=== PATIENT | female | born 2000 | race Caucasian/White ===

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

== ENCOUNTER 2021-10-04 21:59 | Emergency (ER) | payer MEDICAID ==
[2021-10-04 22:23] LABS: BILIRUBIN,URINE NEGATIVE (NEGATIVE); GLUCOSE, URINE (UA) NEGATIVE (NEGATIVE); KETONES,URINE (UA) 15 mg/dL (NEGATIVE); LEUKOCYTE ESTERASE, URINE MODERATE (NEGATIVE); NITRITE,URINE NEGATIVE (NEGATIVE); OCCULT BLOOD,URINE LARGE (NEGATIVE); PH,URINE 6.5 PH (5.0-7.5); PROTEIN,URINE NEGATIVE (NEGATIVE); UROBILINOGEN,URINE 0.2 (NORMAL) E.U./dL (NORMAL)
[2021-10-04 22:26] LABS: CLARITY,URINE HAZY (CLEAR); HCG UR QUAL NEGATIVE
[2021-10-04 22:33] LABS: BACTERIA,URINE Many /HPF (None Seen); RBC,URINE TNTC /HPF (0-5); SQUAMOUS EPITHELIAL CELL,UR FEW Squamous (<= Few); WBC,URINE >25 /HPF (0-5)
[2021-10-04] MEDS ORDERED: HYDROcod/ACET 5/325 Prepack 4 PO STA (23:03)
[2021-10-04] MEDS ORDERED: cefTRIAXone 1 GM VIAL IM STA (23:03)
[2021-10-04] MEDS ORDERED: LIDOCAINE 1% 2 ML VIAL MC ONE (23:03)
[2021-10-04] MEDS ORDERED: KETOROLAC 60 MG/2 ML VIAL IM STA (23:03)
--- NOTE | 2021-10-04 23:05 | ED Physician Documentation ---
PD HPI FEMALE - Stated complaint Stated Complaint: DYSURIA/BACK PX - Chief complaint Chief Complaint: UTI - History obtained from History obtained from: Patient - History of Present Illness Timing - onset: How many weeks ago (2) Timing - duration: Weeks (2) Timing - details: Gradual onset, Still present Associated symptoms: Back pain, Dysuria, Urinary frequency. No: Fever Contributing factors: IUD. No: Similar symptoms before: Diagnosis (UTI) Recently seen: Not recently seen - Additional information Additional information: Previously well 21-year-old female has developed urinary urgency frequency and dysuria about 2 weeks ago. She tried some cranberry juice to mitigate the symptoms this really did not work. She has now developed back pain and the back pain is persistent and severe. She has some nausea she has not had any vomiting. She has back pain that is worse when she is moving around and present even at rest. She has not had fever cough or congestion. Review of Systems Constitutional: denies: Fever Eyes: denies: Decreased vision Ears: denies: Ear pain Nose: denies: Congestion Throat: denies: Sore throat Cardiac: denies: Chest pain / pressure Respiratory: denies: Dyspnea, Cough GI: reports: Nausea. denies: Abdominal Pain, Vomiting, Diarrhea : reports: Dysuria, Frequency Skin: denies: Rash Musculoskeletal: reports: Back pain. denies: Neck pain Neurologic: denies: Generalized weakness, Focal weakness, Numbness PD PAST MEDICAL HISTORY - Past Medical History Past Medical History: Yes Respiratory: Sleep apnea Endocrine/Autoimmune: Type 2 diabetes, HyPERthyroidism : Chronic bladder infection, Kidney stones Psych: Depression - Past Surgical History Past Surgical History: No - Present Medications Home Medications: Ambulatory Orders Medication Instructions Recorded Confirmed Topiramate 25 mg PO DAILY PM 12/02/16 03/15/17 FLUoxetine [PROzac] 40 mg PO DAILY 02/15/17 03/15/17 QUEtiapine [SEROquel] 400 mg PO QPM 01/28/18 01/28/18 buPROPion [Wellbutrin Sr] 01/28/18 Amox/Clav 875/125 [Augmentin] 1 each PO Q12H #14 tablet 10/04/21 HYDROcod/ACETAM 5/325 [[place] 5/325] 1 - 2 tablet PO Q6H PRN #14 tablet 10/04/21 - Allergies Allergies/Adverse Reactions: Allergies Allergy/AdvReac Type Severity Reaction Status Date / Time tetanus and diphtheria AdvReac Severe fever, Verified 10/04/21 22:10 toxoids swelling [Tetanus&Diphtheria Toxoid] - Social History Does the pt smoke?: No Smoking Status: Never smoker Does the pt drink ETOH?: No Does the pt have substance abuse?: No - Immunizations Immunizations are current?: Yes - POLST Patient has POLST: No PD ED PE NORMAL - Vitals Vital signs reviewed: Yes (Normal) - General General: Alert and oriented X 3, No acute distress, Well developed/nourished, Other (21-year-old female laying in the position with facial expression of pain.) - HEENT HEENT: Atraumatic, PERRL, EOMI - Respiratory Respiratory: No respiratory distress - Back Back: No spinal TTP, Other (Bilateral CVA tenderness worse on the right than the left.) - Derm Derm: Normal color, Warm and dry, No rash - Extremities Extremities: No deformity, No edema - Neuro Neuro: Alert and oriented X 3, infectious disease physician 2-12 intact, No motor deficit, No sensory deficit, Normal speech Eye Opening: Spontaneous Motor: Obeys Commands Verbal: Oriented GCS Score: 15 - Psych Psych: Normal mood, Normal affect Results - Vitals Vitals: Vital Signs - 24 hr 10/04/21 22:05 Temperature 36.7 C Heart Rate 99 Respiratory 18 Rate Blood Pressure 128/66 O2 Saturation 99 Oxygen O2 Source Room air - Labs Labs: Laboratory Tests 10/04/21 22:15 Urine Color YELLOW Urine Clarity HAZY Urine pH 6.5 Ur Specific [place] 1.015 Urine Protein NEGATIVE Urine Glucose (UA) NEGATIVE Urine Ketones 15 H Urine Occult Blood LARGE H Urine Nitrite NEGATIVE Urine Bilirubin NEGATIVE Urine Urobilinogen 0.2 (NORMAL) Ur Leukocyte Esterase MODERATE H Urine RBC TNTC H Urine WBC >25 H Ur Squamous Epith Cells FEW Squamous Urine Bacteria Many H Ur Microscopic Review INDICATED Urine Culture Comments INDICATED Urine HCG, Qual NEGATIVE PD MEDICAL DECISION MAKING - ED course Complexity details: reviewed results, re-evaluated patient, considered differential, d/w patient ED course: 21-year-old female with urinary tract infection and flank pain and nausea has pyelonephritis and she is ministered Rocephin IM as well as Toradol. We will send her home dose of pain medication. On review of the patient's prior urines she has grown an E. coli twice that has been resistant to sulfa and to ampicillin. It is sensitive to ceftriaxone and Augmentin. We will place this patient on Augmentin today. Departure - Departure Disposition: 01 Home, Self Care Clinical Impression: Pyelonephritis Instructions: ED Kidney Infec Female Follow-Up: Carine Reno MD [Physician No Access] - Prescriptions: Amox/Clav 875/125 [Augmentin] 1 each PO Q12H #14 tablet HYDROcod/ACETAM 5/325 [[place] 5/325] 1 - 2 tablet PO Q6H PRN #14 tablet PRN Reason: Pain
[2021-10-04 23:39] VITALS: BP 124/78
== END 2021-10-04 23:38 | disposition home or self-care (01) ==
LOC: ED 21:59
DX: N12 Tubulo-interstitial nephritis, not specified as acute or chronic (principal)
CPT/HCPCS: 81001; 81003; 81025; 87077; 87086; 96372; 99283

== ENCOUNTER 2021-10-07 16:04 | Emergency (ER) | payer MEDICAID ==
--- NOTE | 2021-10-07 17:14 | ED Physician Documentation ---
PD HPI ABD PAIN - Stated complaint Stated Complaint: LT SIDE BACK PX/FEVER/NAUSEA - Chief complaint Chief Complaint: Back Pain - History obtained from History obtained from: Patient - History of Present Illness Associated symptoms: No: Fever, Nausea, Vomiting, Hematemesis, Diarrhea, Constipation, Melena, Hematochezia - Additional information Additional information: Patient is a 21-year-old female who presents to the emergency department with lower back pain, ongoing for the past several days. Had an IUD placed about a month ago. She was seen here a few days ago and diagnosed with a UTI. She states that she took the hydrocodone and amoxicillin/clavulanic acid without relief. She states that she has having some vaginal bleeding and discharge. Mostly spotting. No STD exposure that she is aware of. Review of Systems Ten Systems: 10 systems reviewed and negative Constitutional: denies: Fever, Chills Ears: denies: Ear pain Nose: denies: Rhinorrhea / runny nose, Congestion Respiratory: denies: Cough GI: denies: Vomiting, Diarrhea, Hematemesis, Bloody / black stool : reports: Vaginal bleeding (had an IUD recently placed). denies: Dysuria, Frequency, Hesitancy, Discharge Musculoskeletal: denies: Neck pain, Back pain Neurologic: denies: Headache PD PAST MEDICAL HISTORY - Past Medical History Past Medical History: Yes Respiratory: Sleep apnea Endocrine/Autoimmune: Type 2 diabetes, HyPERthyroidism : Chronic bladder infection, Kidney stones Psych: Depression - Past Surgical History Past Surgical History: No - Present Medications Home Medications: Ambulatory Orders Medication Instructions Recorded Confirmed Amox/Clav 875/125 [Augmentin] 1 each PO Q12H #14 tablet 10/04/21 10/07/21 HYDROcod/ACETAM 5/325 [[place] 5/325] 1 - 2 tablet PO Q6H PRN #14 tablet 10/04/21 10/07/21 Oxycodone HCl/Acetaminophen 1 - 2 each PO Q6H PRN #20 tablet 10/07/21 [Percocet 5-325 mg Tablet] - Allergies Allergies/Adverse Reactions: Allergies Allergy/AdvReac Type Severity Reaction Status Date / Time tetanus and diphtheria AdvReac Severe fever, Verified 10/07/21 16:21 toxoids swelling [Tetanus&Diphtheria Toxoid] - Social History Does the pt smoke?: No Smoking Status: Never smoker Does the pt drink ETOH?: No Does the pt have substance abuse?: No - Immunizations Immunizations are current?: Yes - POLST Patient has POLST: No PD ED PE NORMAL - Vitals Vital signs reviewed: Yes - General General: Alert and oriented X 3, No acute distress, Well developed/nourished - HEENT HEENT: PERRL, Moist mucous membranes - Neck Neck: Supple, no meningeal sign - Cardiac Cardiac: RRR, Strong equal pulses - Respiratory Respiratory: No respiratory distress, Clear bilaterally - Abdomen Abdomen: Soft, Non distended, Other (Patient bilateral lower quadrant. No peritoneal signs) - Female Female : Pt declined - Back Back: No CVA TTP, No spinal TTP - Derm Derm: Warm and dry - Extremities Extremities: No edema - Neuro Neuro: Alert and oriented X 3 - Psych Psych: Normal mood, Normal affect Results - Vitals Vitals: Vital Signs - 24 hr 10/07/21 10/07/21 16:16 19:14 Temperature 36.4 C L Heart Rate 88 71 Respiratory 14 18 Rate Blood Pressure 123/70 110/57 L O2 Saturation 100 98 Oxygen O2 Source Room air - Labs Labs: Laboratory Tests 10/07/21 10/07/21 10/07/21 17:25 17:35 17:35 WBC 10.5 RBC 4.46 Hgb 13.2 Hct 40.1 MCV 89.9 MCH 29.6 MCHC 32.9 RDW 12.4 Plt Count 257 MPV 10.1 Neut # (Auto) 7.1 H Lymph # (Auto) 2.4 [place] # (Auto) 0.8 Eos # (Auto) 0.1 Baso # (Auto) 0.0 Absolute Nucleated RBC 0.00 Nucleated RBC % 0.0 Sodium 138 Potassium 4.2 Chloride 103 Carbon Dioxide 26 Anion Gap 9.0 BUN 19 Creatinine 0.8 Estimated GFR (MDRD) 91 Glucose 77 Calcium 9.2 Total Bilirubin 0.5 AST 14 ALT 15 Alkaline Phosphatase 42 Total Protein 7.0 Albumin 4.0 Globulin 3.0 Albumin/Globulin Ratio 1.3 Lipase 25 Urine Color YELLOW Urine Clarity CLEAR Urine pH 5.5 Ur Specific [place] 1.020 Urine Protein NEGATIVE Urine Glucose (UA) NEGATIVE Urine Ketones NEGATIVE Urine Occult Blood SMALL H Urine Nitrite NEGATIVE Urine Bilirubin NEGATIVE Urine Urobilinogen 0.2 (NORMAL) Ur Leukocyte Esterase NEGATIVE Urine RBC 0-5 Urine WBC 0-3 Ur Squamous Epith Cells FEW Squamous Urine Bacteria Rare Ur Microscopic Review INDICATED Urine Culture Comments NOT INDICATED Urine HCG, Qual NEGATIVE - Rads (name of study) CT abdomen pelvis Radiology: Final report received, EMP read contemporaneously, See rad report (Left hemorrhagic ovarian cyst. No torsion) Pelvic ultrasound Radiology: Prelim report reviewed, EMP read contemporaneously, See rad report PD MEDICAL DECISION MAKING - ED course Complexity details: reviewed results, re-evaluated patient, considered differential, d/w patient ED course: 21-year-old female with a left hemorrhagic ovarian cyst. No significant lab abnormalities. Pain well controlled. Will place her on pain medication for home and have her follow-up with her doctor for further care. Patient counseled regarding signs and symptoms for which I believe and urgent re-evaluation would be necessary. Patient with good understanding of and agreement to plan and is comfortable going home at this time This document was made in part using voice recognition software. While efforts are made to proofread this document, sound alike and grammatical errors may occur. Departure - Departure Disposition: 01 Home, Self Care Clinical Impression: Hemorrhagic cyst of left ovary Condition: Good Instructions: ED Cyst Ovarian Follow-Up: your,doctor in 1 week [Other] Prescriptions: Oxycodone HCl/Acetaminophen [Percocet 5-325 mg Tablet] 1 - 2 each PO Q6H PRN #20 tablet PRN Reason: pain Comments: You have a hemorrhagic left ovarian cyst. This is likely the cause of your pain. The remainder of your testing is normal tonight. You can finish the antibiotics as previously prescribed. Please follow-up with your doctor for a repeat ultrasound in 4 to 6 weeks. I am prescribing a short course of narcotic pain medication for you. These are potentially dangerous and addictive medications that should be used carefully. These medications may constipate you. Take an [id number] stool softener (docusate) twice daily with plenty of water while taking these medications. If you go 24 hours without a bowel movement, take [id number] miralax, per package instructions. Do not drink or drive while taking these medications. If you received narcotic or sedating medications while in the emergency department, do not drive for 24 hours. Store this medication in a safe, secure place and out of reach of children. It is a violation of federal law to give or sell this medication to another person or to use in a manner other than prescribed. The ED will not refill narcotic prescriptions, including prescriptions lost or stolen. To dispose of unwanted medications: 1. [facility] [address] [facility] [place] has a medication drop box. They accept prescription medications (in pill form) Tuesday through Tuesday 9:00 a.m. to 5:00 p.m. 2. The [facility] [employer] accepts prescription medications (in pill form only) for disposal year round. Call for more information. 3. Contact the [facility] for the next [facility] sponsored prescription drug collection event. , [phone], or [phone]; Discharge Date/Time: 10/07/21 19:20
[2021-10-07] MEDS ORDERED: IOVERSOL 320 100 ML VIAL IVP ONE ×2 (17:37→18:21)
[2021-10-07 17:42] LABS: BASOPHILS % (AUTO) 0.2 %; EOSINOPHILS # (AUTO) 0.1 10^3/uL (0.0-0.7); EOSINOPHILS % (AUTO) 1.1 %; HCT - HEMATOCRIT 40.1 % (37.0-47.0); HGB - HEMOGLOBIN 13.2 g/dL (12.0-16.0); LYMPHOCYTES # (AUTO) 2.4 10^3/uL (1.5-3.5); MEAN CORPUSCULAR HEMOGLOBIN 29.6 pg (27.0-31.0); MEAN CORPUSCULAR HGB CONC 32.9 g/dL (32.0-36.0); MEAN CORPUSCULAR VOLUME 89.9 fL (81.0-99.0); MEAN PLATELET VOLUME 10.1 fL (7.9-10.8); MONOCYTES # (AUTO) 0.8 10^3/uL (0.0-1.0); MONOCYTES % (AUTO) 7.8 %; NEUTROPHILS # (AUTO) 7.1 10^3/uL (1.5-6.6); NEUTROPHILS % (AUTO) 67.6 %; PLT - PLATELET COUNT 257 10^3/uL (130-450); RED BLOOD COUNT 4.46 10^6/uL (4.20-5.40); RED CELL DISTRIBUTION WIDTH 12.4 % (12.0-15.0); WHITE BLOOD COUNT 10.5 x10^3/uL (4.8-10.8)
[2021-10-07 17:44] LABS: BILIRUBIN,URINE NEGATIVE (NEGATIVE); GLUCOSE, URINE (UA) NEGATIVE (NEGATIVE); KETONES,URINE (UA) NEGATIVE (NEGATIVE); LEUKOCYTE ESTERASE, URINE NEGATIVE (NEGATIVE); NITRITE,URINE NEGATIVE (NEGATIVE); OCCULT BLOOD,URINE SMALL (NEGATIVE); PH,URINE 5.5 PH (5.0-7.5); PROTEIN,URINE NEGATIVE (NEGATIVE); UROBILINOGEN,URINE 0.2 (NORMAL) E.U./dL (NORMAL)
[2021-10-07 17:46] LABS: CLARITY,URINE CLEAR (CLEAR); HCG UR QUAL NEGATIVE
[2021-10-07 17:56] LABS: ALBUMIN/GLOBULIN RATIO 1.3 (1.0-2.2); BILIRUBIN,TOTAL 0.5 mg/dL (0.2-1.0); CALCIUM 9.2 mg/dL (8.5-10.3); CREATININE 0.8 mg/dL (0.4-1.0); POTASSIUM 4.2 mmol/L (3.5-5.0)
[2021-10-07 17:56] LABS: BACTERIA,URINE Rare /HPF (None Seen); RBC,URINE 0-5 /HPF (0-5); SQUAMOUS EPITHELIAL CELL,UR FEW Squamous (<= Few); WBC,URINE 0-3 /HPF (0-5)
[2021-10-07] MEDS ORDERED: MORPHINE 2 MG/ML CARPUJECT IVP STA (18:13)
[2021-10-07] MEDS ORDERED: KETOROLAC 30 MG/ML VIAL IVP STA (18:13)
--- NOTE | 2021-10-07 18:33 | CT Report ---
PROCEDURE: Abdomen/Pelvis W INDICATIONS: Abdominal pain, acute, nonlocalized CONTRAST: IV CONTRAST: Optiray 320 ml: 100 PO CONTRAST: *NO PO CONTRAST TECHNIQUE: After the administration of intravenous contrast, 5 mm thick sections acquired from the diaphragms to the symphysis. 5 mm thick coronal and sagittal reformats were acquired. For radiation dose reducti on, the following was used: automated exposure control, adjustment of mA and/or kV according to santos ent size. COMPARISON: 12/02/2016 FINDINGS: Image quality: Excellent. ABDOMEN: Lung bases: Lung bases are clear. Heart size is normal. Solid organs: Liver and spleen are normal in size and enhancement. Gallbladder contracted and unrem arkable otherwise. Biliary system is non dilated. Pancreas enhances normally. No adrenal nodules. Kidneys demonstrate normal size and enhancement, without hydronephrosis. Peritoneum and bowel: Bowel loops demonstrate normal wall thickness and caliber. No free fluid or a ir. Nodes and vessels: No retroperitoneal or mesenteric adenopathy by size criteria. Aorta and inferior vena cava are normal in size. Miscellaneous: No ventral hernias. PELVIS: Genitourinary: Bladder wall thickness is normal. Miscellaneous: No inguinal hernias or adenopathy. Bones: No suspicious bony lesions. No vertebral body compression fractures. IMPRESSION: Normal study. Reviewed by: Jarrod Palacios MD on 10/07/2021 5:32 PM [facility] Approved by: Jarrod Palacios MD on 10/07/2021 5:32 PM [facility] Station ID: [id number]
[2021-10-07] MEDS ORDERED: oxyCODONE 5 MG TABLET PO STA (18:59)
--- NOTE | 2021-10-07 19:13 | Ultrasound Report ---
PROCEDURE: Pelvic w/Doppler Limited INDICATIONS: L OVARIAN CYST ON CT TECHNIQUE: Real-time transabdominal scanning was performed of the pelvic organs, with image documentation. COMPARISON: Same-day CT of the abdomen and pelvis FINDINGS: Uterus: Uterus is normal in size at 3.4 x 5.5 x 8.7 cm. Endometrium measures 9 mm in combined thick ness. IUD is in appropriate position. Ovaries: There are right and left ovaries are normal in size. There is a complex left ovarian cyst a s seen on the CT scan measuring 2.3 cm, likely a hemorrhagic cyst. No findings of torsion. Other: No free pelvic fluid. IMPRESSION: No findings of ovarian torsion. Left ovarian cyst is likely a hemorrhagic cyst and repre sents a potential source of pain. Follow-up in 4-6 weeks recommended to document resolution. Reviewed by: Jarrod Palacios MD on 10/07/2021 6:11 PM [facility] Approved by: Jarrod Palacios MD on 10/07/2021 6:11 PM [facility] Station ID: [id number]
[2021-10-07 19:18] VITALS: BP 110/57
[2021-10-07 20:18] LABS: BACTERIAL VAGINOSIS DNA NEGATIVE (NEGATIVE); CANDIDA GLABRATA DNA NEGATIVE (NEGATIVE); CANDIDA GROUP DNA NEGATIVE (NEGATIVE); CANDIDA KRUSEI DNA NEGATIVE (NEGATIVE); TRICHOMONAS VAGINALIS DNA NEGATIVE (NEGATIVE)
[2021-10-07 22:18] LABS: CHLAMYDIA TRACHOMATIS DNA NEGATIVE (NEGATIVE); NEISSERIA GONORRHOEAE DNA NEGATIVE (NEGATIVE); TRICHOMONAS VAGINALIS DNA NEGATIVE (NEGATIVE)
== END 2021-10-07 19:20 | disposition home or self-care (01) ==
LOC: ED 16:04
DX: N83.202 Unspecified ovarian cyst, left side (principal); N93.9 Abnormal uterine and vaginal bleeding, unspecified; N89.8 Other specified noninflammatory disorders of vagina; Z97.5 Presence of (intrauterine) contraceptive device; E11.9 Type 2 diabetes mellitus without complications
CPT/HCPCS: 36415; 74177; 76856; 80053; 81001; 81025; 83690; 85025; 87481; 87491; 87591; 87661; 87801; 93976; 96374; 99283; 99284; A9270; Q9967; 81003; 87086